=== PATIENT | male | born 1945 | race Caucasian/White ===

== ENCOUNTER 2019-02-08 13:05 | Day surgery (SDC) | payer MEDICARE, OTHER ==
[2019-02-02 09:50] LABS: ABSOLUTE EOSINOPHILS # (AUTO) 0.1 10^3/uL (0.0-0.6); ABSOLUTE MONOCYTES (AUTO) 0.6 10^3/uL (0.1-1.4); ABSOLUTE NEUT (AUTO) 4.5 10^3/uL (1.7-8.2); BASOPHILS % (AUTO) 0.4 % (0-2); EOSINOPHILS % (AUTO) 2.1 % (0-6); HEMATOCRIT 44.7 % (37.9-51.0); HEMOGLOBIN 15.5 g/dL (13.5-17.0); LYMPHOCYTES % (AUTO) 16.2 % (13-45); MEAN CORPUSCULAR HEMOGLOBIN 29.1 pg (27.0-33.4); MEAN CORPUSCULAR HGB CONC 34.6 g/dL (32.0-36.0); MEAN CORPUSCULAR VOLUME 84 fl (80-97); MONOCYTES % (AUTO) 8.9 % (3-13); PLATELET COUNT 165 10^3/uL (150-450); RED BLOOD COUNT 5.31 10^6/uL (4.35-5.55); RED CELL DISTRIBUTION WIDTH 16.1 % (11.5-14.0); SEGMENTED NEUTROPHILS % (AUTO) 72.4 % (42-78); TOTAL CELLS COUNTED % (AUTO) 100 %; WHITE BLOOD COUNT 6.3 10^3/uL (4.0-10.5)
[2019-02-02 09:53] LABS: INTERNATIONAL RATION (INR) 0.99; PROTHROMBIN TIME 13.1 SEC (11.4-15.4)
[2019-02-02 09:54] LABS: PARTIAL THROMBOPLASTIN TIME 29.4 SEC (23.5-35.8)
[2019-02-02 09:54] LABS: APPEARANCE,URINE CLEAR; BILIRUBIN,URINE NEGATIVE (NEGATIVE); COLOR,URINE YELLOW; GLUCOSE, URINE NEGATIVE (NEGATIVE); KETONES,URINE TRACE mg/dL (NEGATIVE); LEUKOCYTE ESTERASE,URINE NEGATIVE (NEGATIVE); NITRITE,URINE NEGATIVE (NEGATIVE); PROTEIN,URINE NEGATIVE (NEGATIVE); URINE SPECIFIC GRAVITY 1.023
[2019-02-02 10:54] LABS: ANION GAP 12 (5-19); BLOOD UREA NITROGEN 17 mg/dL (7-20); CALCIUM 9.8 mg/dL (8.4-10.2); CARBON DIOXIDE 25 mmol/L (22-30); CHLORIDE 105 mmol/L (98-107); GLUCOSE 85 mg/dL (75-110); POTASSIUM 4.4 mmol/L (3.6-5.0)
--- NOTE | 2019-02-02 22:19 | EKG REPORT ---
SEVERITY:- NORMAL ECG - SINUS RHYTHM : Confirmed by: Priyanka Marshall MD 02-Feb-2019 22:18:47
[~2019-02-08 13:05] MED LIST: CEFAZOLIN 1 GM/D5W RTU 1 GM/50 ML RTUPB IV ONE; CEFAZOLIN 1 GM/D5W RTU 1 GM/50 ML RTUPB IV PRN; LACTATED RINGERS 1000 ML IV PRN; LIDOCAINE 0.5% INJ-PF (5 MG/ML) 50 ML SDV SUBCUT PRN
[2019-02-08] MEDS ORDERED: LIDOCAINE 1% INJ-PF (10 MG/ML) 30 ML SDV ONE (14:25)
[2019-02-08] MEDS ORDERED: PROPOFOL INJ 200 MG/20 ML VIAL IV ONE (14:25)
[2019-02-08] MEDS ORDERED: MIDAZOLAM 2 MG/2 ML INJ ONE (14:25)
[2019-02-08] MEDS ORDERED: FENTANYL CITRATE INJ/PF 100 MCG/2 ML AMPUL ONE (14:25)
[2019-02-08] MEDS ORDERED: TRIAMCINOLONE ACETONIDE INJ 40 MG/1 ML VIAL ONE (14:26)
[2019-02-08] MEDS ORDERED: DIPHENHYDRAMINE HCL 50 MG/ML VIAL ONE (14:38)
[2019-02-08] MEDS ORDERED: DEXAMETHASONE SOD PHOS INJ 10 MG/1 ML VIAL ONE ×2 (14:38→14:39)
--- NOTE | 2019-02-08 16:07 | Operative Report ---
Operative Report DATE OF SURGERY: 02/08/19 PREOPERATIVE DIAGNOSIS: Lumbar spinal stenosis with neurogenic claudication POSTOPERATIVE DIAGNOSIS: Same OPERATION: 1. Minimally invasive lumbar decompression at L4-L5. 2 epidural steroid injection with 80 mg of Kenalog at L4-L5 SURGEON: JACQUE DAMICO TISSUE REMOVED OR ALTERED: Ligamentum flavum which was discarded COMPLICATIONS: None ESTIMATED BLOOD LOSS: 5 mL INTRAOPERATIVE FINDINGS: Improved spread of Omnipaque contrast in the epidural space following the procedure PROCEDURE: Operative indications: Mr. Hutchison is a 73-year-old male with lumbar spinal stenosis and neurogenic claudication. He has had progression of symptoms and has substantial ligamentous hypertrophy at L4-L5. The patient was determined to be a good candidate for minimally invasive lumbar decompression. Risks and benefits were discussed in detail including but not limited to bleeding bruising infection injury to nerves arteries veins loss of bowel or bladder function paralysis and potentially even . The patient agreed to proceed. Operative report: The patient was accompanied by anesthesia staff to the operative suite where he was placed in prone position. All pressure points were checked and padded. Standard ASA lines and monitors were applied. The patient was prepped in sterile fashion using chlorhexidine gluconate solution and was allowed an appropriate time to dry. The patient was then draped using an Ioban drape. Appropriate timeout procedure was performed with the operative staff as per [facility] standards. The C arm was draped into the field to provide fluoroscopic guidance. The L4-L5 interspace was marked and the skin overlying the midline was anesthetized with 1% lidocaine subsequently a 17-gauge Touhy epidural needle was advanced intermittent AP and oblique angulations to the posterior epidural space using a [id number] technique to normal saline. Notably tasf-co-jbeikmobcq was difficult to obtain in the midline and as such a right paramedian approach was performed at L4-L5. The needle was in place and epidurogram was obtained using Isovue contrast and a volume of 5 mL. Incision site was planned to vertebral segments down from the L4-L5 interspace just to the left of midline. The skin was anesthetized with 1% buffered lidocaine and deeper tissues were infiltrated using a 3.5 inch 25-gauge spinal needle with 1% lidocaine. Subsequently, incision was made using a 15-blade scalpel and then a trocar provided by the [employer] was advanced using AP and fluoroscopic guidance to the L4-5 interspace stabilizer was placed in the depth gauge was set at 15 mm. A bone rongeu was advanced through the trocar using continuous fluoroscopic guidance to take bites of bone and ligament through the rongeur from the superior lamina of L5 and the inferior lamina of L4. Was completed a tissue sculptor was utilized as provided by the [employer] kit to remove further pieces of ligamentum flavum. Following this injection of Omnipaque dye revealed improved cephalad spread. Attention was turned to the opposite side with the procedure was performed in identical fashion. Marked improvement in epidural spread of contrast was appreciated. The trochars were then removed skin cleansed and Steri-Strips applied to incision sites. Subsequently 80 mg of Kenalog was injected through the Touhy needle in the midline and this was removed as well. The patient tolerated the procedure well and was accompanied by anesthesia staff to the postanesthesia recovery unit in stable condition. He will be discharged home and will have follow-up within 24 hours
[2019-02-08] MEDS ORDERED: HYDROCODONE/ACETAMINOPHEN 5-325 MG TABLET PO PRN (16:18)
[2019-02-08] MEDS ORDERED: ONDANSETRON HCL INJ/PF 4 MG/2 ML SDV IV PRN (16:18)
--- NOTE | 2019-02-08 16:20 | RADIOLOGY REPORT (SQ) ---
EXAM DESCRIPTION: L SPINE 2 VIEWS; NO CHG FLUORO COMPLETED DATE/TIME: 02/08/2019 4:11 pm REASON FOR STUDY: MILD L4-L5 M48.062 SPINAL STENOSIS, LUMBAR REGION WITH NEUROGENIC KRYSTIN Z00.6 EN CNTR FOR EXAM FOR NRML [facility] AND CTRL IN [facility] Z79.899 OTHER [facility] (CURRENT) DRUG THERAPY COMPARISON: None. FLUOROSCOPY TIME: 7.3 minutes 5 images saved to PACS. TECHNIQUE: Intra-operative images acquired during surgical procedure to evaluate progress. NUMBER OF IMAGES: 7 LIMITATIONS: None. FINDINGS: Fluoroscopy was provided for intraoperative procedure. Please refer to the operative repo rt for further discussion. IMPRESSION: IMAGE(S) OBTAINED DURING PROCEDURE. COMMENT: Quality ID [id number]: Final reports for procedures using fluoroscopy that document radiation exp osure indices, or exposure time and number of fluorographic images (if radiation exposure indices are not available) Please consult full operative report of the attending physician for description of the procedure. TECHNICAL DOCUMENTATION: JOB ID: [id number] [employer]- All Rights Reserved Reading location - IP/workstation name: [email or web address]
--- NOTE | 2019-02-08 16:20 | RADIOLOGY REPORT (SQ) ---
EXAM DESCRIPTION: L SPINE 2 VIEWS; NO CHG FLUORO COMPLETED DATE/TIME: 02/08/2019 4:11 pm REASON FOR STUDY: MILD L4-L5 M48.062 SPINAL STENOSIS, LUMBAR REGION WITH NEUROGENIC KRYSTIN Z00.6 EN CNTR FOR EXAM FOR NRML CMPRSN AND CTRL IN [facility] Z79.899 OTHER [facility] (CURRENT) DRUG THERAPY COMPARISON: None. FLUOROSCOPY TIME: 7.3 minutes 5 images saved to PACS. TECHNIQUE: Intra-operative images acquired during surgical procedure to evaluate progress. NUMBER OF IMAGES: 7 LIMITATIONS: None. FINDINGS: Fluoroscopy was provided for intraoperative procedure. Please refer to the operative repo rt for further discussion. IMPRESSION: IMAGE(S) OBTAINED DURING PROCEDURE. COMMENT: Quality ID [id number]: Final reports for procedures using fluoroscopy that document radiation exp osure indices, or exposure time and number of fluorographic images (if radiation exposure indices are not available) Please consult full operative report of the attending physician for description of the procedure. TECHNICAL DOCUMENTATION: JOB ID: [id number] [employer] All Rights Reserved Reading location - IP/workstation name: [email or web address]
[2019-02-08 18:10] VITALS: BP 114/74
== END 2019-02-08 18:00 | disposition home or self-care (01) ==
LOC: OROUT 13:05
PROVIDERS: ATTEND Pain Medicine Interventional Pain Medicine
DX: M48.062 Spinal stenosis, lumbar region with neurogenic claudication (principal); Z00.6 Encounter for examination for normal comparison and control in clinical research program; G89.4 Chronic pain syndrome; M47.817 Spondylosis without myelopathy or radiculopathy, lumbosacral region; M41.9 Scoliosis, unspecified; M51.36 Other intervertebral disc degeneration, lumbar region; G20 Parkinson's disease
CPT/HCPCS: 93005; 36415; 85025; 85610; 85730; 80048; 81001; 72100; 93010; 00630; 0275T; C1889; Q9966; J2250; J0690; J1200; J3010; J3490; J3301; J2704; J1100; 630